=== PATIENT | female | born 1960 | race African-American/Black ===

== ENCOUNTER 2017-02-06 16:00 | Emergency (ER) | payer BC ==
[~2017-02-06] VITALS: Ht 177.8 cm; Wt 86.2 kg
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
[~2017-02-06 16:00] MED LIST: CIPRO PO; FLEXERIL10 MG PO; IBUPROFEN PO; LIPITOR PO; LORTAB 5/500 TA1 TA1; LOSARTAN POTASS50 MG PO; LOTREL PO; NORCO 7.5-3251 EACH PO; NORVASC10 MG PO; PHENERGAN25 MG; PYRIDIUM PO; SKELAXIN PO; VOLTAREN75 MG PO
== END 2017-02-06 18:26 | disposition home or self-care (01) ==
LOC: CED 16:00 → CFTX 16:00
DX: S13.4XXA Sprain of ligaments of cervical spine, initial encounter (principal); S40.012A Contusion of left shoulder, initial encounter; I10 Essential (primary) hypertension; F17.210 Nicotine dependence, cigarettes, uncomplicated; V89.2XXA Person injured in unspecified motor-vehicle accident, traffic, initial encounter; Y92.410 Unspecified street and highway as the place of occurrence of the external cause
CPT/HCPCS: 71020; 72040; 99284